=== PATIENT | female | born 1980 | race Two or more races ===

== ENCOUNTER 2024-04-18 15:44 | Outpatient (CLI) | payer OTHER | END 2024-04-18 15:49 | disposition home or self-care (01) | LOC: MAMO-SONO 15:44 | PROVIDERS: ATTEND Obstetrics & Gynecology | DX: N63 Unspecified lump in breast (principal); N64.59 Other signs and symptoms in breast; N64.9 Disorder of breast, unspecified ==

== ENCOUNTER 2025-05-02 11:26 | Outpatient (CLI) | payer OTHER | END 2025-05-02 11:31 | disposition home or self-care (01) | LOC: MAMO-SONO 11:26 | DX: N92.5 Other specified irregular menstruation (principal); Z97.5 Presence of (intrauterine) contraceptive device; N60.19 Diffuse cystic mastopathy of unspecified breast ==

== ENCOUNTER 2025-05-12 10:13 | Outpatient (CLI) | payer OTHER | END 2025-05-12 10:16 | disposition home or self-care (01) | LOC: SONOGRAMA 10:13 | DX: R22.2 Localized swelling, mass and lump, trunk (principal) ==